=== PATIENT | female | born 1990 | race Caucasian/White ===

== ENCOUNTER 2025-01-22 12:58 | Outpatient (REF) | payer OTHER, SELFPAY ==
--- NOTE | 2025-01-22 13:03 | EMG_ITS ---
Chief complaint: Bilateral wrists and base of thumb pain, denies numbness Reason for referral: Evaluate for Carpal Tunnel Syndrome Referred by: Diego PINO Procedure done: Bilateral upper extremities NCS/EMG Precautions and/or limitations: None The limb temperature was monitored continuously and remained between 32-36 degrees C during the performance of the NCS. Nerve Conduction Studies Anti Sensory Summary Table ?Stim Site NR Onset (ms) Norm Onset (ms) Peak (ms) Norm Peak (ms) O-P Amp (?V) Norm O-P Amp Site1 Site2 Delta-0 (ms) Dist (cm) Alfred (m/s) Norm Alfred (m/s) Left Median Anti Sensory (2nd Digit) Wrist ? 2.2 2.9 <3.6 37.3 >10 Wrist 2nd Digit 2.2 14.0 64 Right Median Anti Sensory (2nd Digit) Wrist ? 2.2 2.9 <3.6 28.5 >10 Wrist 2nd Digit 2.2 14.0 64 Left Ulnar Anti Sensory (5th Digit) Wrist ? 2.3 2.9 <3.7 22.9 >15.0 Wrist 5th Digit 2.3 14.0 61 Right Ulnar Anti Sensory (5th Digit) Wrist ? 2.1 2.8 <3.7 16.1 >15.0 Wrist 5th Digit 2.1 14.0 67 Motor Summary Table ?Stim Site NR Onset (ms) Norm Onset (ms) O-P Amp (mV) Norm O-P Amp iAmp (mV) Amp (1st) (%) Site1 Site2 Delta-0 (ms) Dist (cm) Alfred (m/s) Norm Alfred (m/s) Left Median Motor (Abd Poll Brev) Wrist ? 2.7 <3.9 12.1 >4.5 14.3 100.0 Elbow Wrist 3.4 19.0 56 >45 Elbow ? 6.1 9.8 11.5 81.0 Right Median Motor (Abd Poll Brev) Wrist ? 2.7 <3.9 10.0 >4.5 11.0 100.0 Elbow Wrist 3.6 19.0 53 >45 Elbow ? 6.3 9.4 10.6 94.0 Left Ulnar Motor (Abd Dig Minimi) Wrist ? 2.2 <3.0 7.6 >5 8.9 100.0 B Elbow Wrist 2.9 18.0 62 >45 B Elbow ? 5.1 6.3 7.6 82.9 A Elbow B Elbow 1.6 10.0 62 >45 A Elbow ? 6.7 7.4 9.1 97.4 Right Ulnar Motor (Abd Dig Minimi) Wrist ? 2.3 <3.0 9.1 >5 11.3 100.0 B Elbow Wrist 3.0 18.5 62 >45 B Elbow ? 5.3 9.4 11.6 103.3 A Elbow B Elbow 1.4 10.0 71 >45 A Elbow ? 6.7 9.3 11.3 102.2 Comparison Summary Table ?Stim Site NR Peak (ms) Norm Peak (ms) P-T Amp (?V) Site1 Site2 Delta-P (ms) Norm Delta (ms) Right Median/Radial Dig I Comparison (Digit 1 - 10cm) Median ? 2.3 <2.9 34.9 Median Radial 0.0 Radial ? 2.3 <2.8 24.9 EMG ?Side Muscle Nerve Root Ins Act Fibs Psw Amp Dur Poly Recrt Int Pat Comment Right 1stDorInt Ulnar C8-T1 Nml Nml Nml Nml Nml 0 Nml Complete Right FlexCarRad Median C6-7 Nml Nml Nml Nml Nml 0 Nml Complete Right Biceps Musculocut C5-6 Nml Nml Nml Nml Nml 0 Nml Complete Right Triceps Radial C6-7-8 Nml Nml Nml Nml Nml 0 Nml Complete Right Deltoid Axillary C5-6 Nml Nml Nml Nml Nml 0 Nml Complete Left 1stDorInt Ulnar C8-T1 Nml Nml Nml Nml Nml 0 Nml Complete Left FlexCarRad Median C6-7 Nml Nml Nml Nml Nml 0 Nml Complete Left Biceps Musculocut C5-6 Nml Nml Nml Nml Nml 0 Nml Complete Left Triceps Radial C6-7-8 Nml Nml Nml Nml Nml 0 Nml Complete Left Deltoid Axillary C5-6 Nml Nml Nml Nml Nml 0 Nml Complete FINDINGS: All motor and sensory nerves tested showed normal latencies, amplitudes and conduction velocities. Concentric needle EMG was performed in selected muscles of the upper extremity. Study did not reveal signs of electric abnormalities as shown in the table above. IMPRESSION: 1. This is a normal study. 2. There is no electrodiagnostic evidence for median neuropathy, ulnar neuropathy, brachial plexopathy, or cervical radiculopathy. Thank you for your kind referral. Beti Squires MD, STACY Board Certified, [place] Board [employer] and Rehabilitation (ABPMR) Board Certified, [place] Board of Electrodiagnostic Medicine (ABEM) CODIN [phone] x 2 MTDD
== END 2025-01-22 12:59 | disposition home or self-care (01) ==
LOC: HO.NEURO 12:58
PROVIDERS: PCP Nurse Practitioner Adult Health
DX: R20.0 Anesthesia of skin (principal); R20.2 Paresthesia of skin; M25.532 Pain in left wrist; M25.531 Pain in right wrist
CPT/HCPCS: 95886; 95911

== ENCOUNTER → 2025-01-22 13:03 | Outpatient (BNV) | payer OTHER, SELFPAY | PROVIDERS: PCP Nurse Practitioner Adult Health; Visit Provider Physical Medicine & Rehabilitation | DX: M25.532 Pain in left wrist (principal); M25.531 Pain in right wrist; M79.641 Pain in right hand; M79.642 Pain in left hand | CPT/HCPCS: 95886; 95911 ==

== ENCOUNTER 2025-01-23 10:06 | Outpatient (REF) | payer OTHER, SELFPAY | END 2025-01-23 10:07 | disposition home or self-care (01) | LOC: HO.HOSX 10:06 | DX: Z13.89 Encounter for screening for other disorder (principal) ==

== ENCOUNTER 2025-01-23 11:03 | Outpatient (AMB) | payer OTHER, SELFPAY ==
--- NOTE | 2025-01-23 11:03 | MHC.OFFVIS ---
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 She expresses sharp shooting pain on the medial aspect of right wrist with squeezing and twisting activities. Left wrist is starting to cause pain on medical aspect as well. Her right wrist causes her pain most days of the week. Her symptoms are the same of the left medial wrist. She expresses pain with activities such as dialing numbers on her phone with her thumbs. Patient reports that she has had ongoing bilateral wrist and hand pain for years now. She has previously utilized bracing and topical creams. Currently her pain is felt at the base of her thumb, denies numbness and tingling . 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 Her symptoms are intermittent where they flair up for about a week and then resolve for a few week. When she has this flair up she takes Ibuprofen which has not been helpful. Right worse than the left. She also has weakness during these flair ups. 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 She expresses sharp shooting pain on the medial aspect of right wrist with squeezing and twisting activities. Left wrist is starting to cause pain on medical aspect as well. Her right wrist causes her pain most days of the week. Her symptoms are the same of the left medial wrist. She expresses pain with activities such as dialing numbers on her phone with her thumbs. Patient reports that she has had ongoing bilateral wrist and hand pain for years now. She has previously utilized bracing and topical creams. Currently her pain is felt at the base of her thumb, denies numbness and tingling . 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 Her symptoms are intermittent where they flair up for about a week and then resolve for a few week. When she has this flair up she takes Ibuprofen which has not been helpful. Right worse than the left. She also has weakness during these flair ups. IMPRESSION: 1. This is a normal study. 2. There is no electrodiagnostic evidence for median neuropathy, ulnar neuropathy, brachial plexopathy, or cervical radiculopathy. 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 -[employer] Review of Systems Const All systems reviewed & are unremarkable except as noted in HPI and below Physical Exam Vital Signs: BMI result Body Mass Index 30.5 Telehealth Telehealth Telehealth Platform: Telephone Location of provider rendering services: practice address Location of patient: address on file Patient Identification confirmed using: Name, : Yes Telehealth method: voice only Patient verbally consented to treatment: Yes Patient verbally consented to billing insurance company: Yes Assessment & Plan Assessment & Plan (1) Numbness and tingling in both hands: Code(s): R20.0 - Anesthesia of skin; R20.2 - Paresthesia of skin Category: Medical (2) Bilateral wrist pain: Code(s): M25.531 - Pain in right wrist; M25.532 - Pain in left wrist Category: Medical Plan 1. Bilateral hand numbness and tingling Symptoms intermittent, daily, worse at night Negative EMG Patient is this condition Patient is educated about the typical recovery course At this time, patient is informed that due to the fact that she has a negative EMG and nerve conduction study, there is no surgical indication at this time Patient is amenable to this plan 2. Bilateral wrist pain Patient is booked for next available appointment with me to discuss bilateral wrist pain and further treatment if indicated Patient is amenable to this plan Follow-up for next available new problem appointment, sooner with any acute concerns Orders: Orders XR Hand Bilat min 3v Today M79.643 - Pain in unspecified hand Coding Level of Care Code Tele New Pt Level 3 (33391) Diagnoses Numbness and tingling in both hands R20.0; R20.2 Bilateral wrist pain M25.531; M25.532
[2025-01-23 11:05] VITALS: BMI 30.5
== END 2025-01-23 11:14 | disposition home or self-care (01) ==
LOC: HO.HOS 11:03
PROVIDERS: PCP Nurse Practitioner Adult Health
DX: R20.0 Anesthesia of skin (principal); R20.2 Paresthesia of skin; M25.531 Pain in right wrist; M25.532 Pain in left wrist
CPT/HCPCS: 98008

== ENCOUNTER 2025-02-19 10:41 | Outpatient (REF) | payer OTHER, SELFPAY ==
--- NOTE | ~2025-02-19 | XR_ITS ---
EXAMINATION: XR WRIST, BILATERAL 3V CLINICAL INFORMATION: M25.531 - Pain in right wrist COMPARISON: Pain in right wrist. TECHNIQUE: PA, lateral, and oblique views of the each hand and wrist. FINDINGS: LEFT WRIST: No fracture, dislocation, or suspicious bone lesion. Normal bone mineralization. Normal alignment. There is negative ulnar variance. Joint spaces are preserved. No significant arthropathy. No erosions. Soft tissues appear normal. RIGHT WRIST: No fracture, dislocation, or suspicious bone lesion. Normal bone mineralization. Normal alignment. There is negative ulnar variance. Joint spaces are preserved. No significant arthropathy. No erosions. Soft tissues appear normal. XR/XR Wrist Rafael min 3V IMPRESSION: Normal bilateral wrist radiographs. Electronically signed by: Nelson Ramos MD 02/19/2025 02:40 PM EDT
== END 2025-02-19 10:42 | disposition home or self-care (01) ==
LOC: HO.HOSX 10:41
DX: M25.532 Pain in left wrist (principal); M25.531 Pain in right wrist; M65.4 Radial styloid tenosynovitis [de Quervain]
CPT/HCPCS: 20550; 73110; 99212; J1100; J2003

== ENCOUNTER 2025-02-19 13:12 | Outpatient (AMB) | payer OTHER, SELFPAY ==
--- NOTE | 2025-02-19 13:24 | A.OFFVIS_ITS ---
Vital Signs 02/19/25 15:10 Height 5 ft 2 in Weight 167 lb BMI 30.5 Intake Visit Reasons: New prob- bilateral wrist pain Intake Note: Rizwana is a 34 year old right hand dominant female who presents today for a new problem visit for evaluation of her bilateral wrist pain. Patient reports PCP told her she may have tendonitis. She has tried topical creams and wrist brace f or pain and has found no relief. Her symptoms are intermittent. 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 Denies numbness and tingling. Her pain is on the radial aspect of the bilateral wrist. Her pain prohibits heavy lifting, flexion, and extension. Any pushing activities make her pull her hand back towards her immediately. Usage of the thumbs are too painful for her. EMG/NCS done on 01/22/25 IMPRESSION: 1. This is a normal study. 2. There is no electrodiagnostic evidence for median neuropathy, ulnar neuropathy, brachial plexopathy, or cervical radiculopathy. Allergies metronidazole [From Flagyl] Allergy (Verified 02/19/25 15:09) Hives HPI HPI New prob- bilateral wrist pain: Details: Rizwana is a 34 year old right hand dominant female who presents today for a new problem visit for evaluation of her bilateral wrist pain. Patient reports PCP told her she may have tendonitis. She has tried topical creams and wrist brace for pain and has found no relief. Her symptoms are intermittent. 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 Denies numbness and tingling. Her pain is on the radial aspect of the bilateral wrist. Her pain prohibits heavy lifting, flexion, and extension. Any pushing activities make her pull her hand back towards her immediately. Usage of the thumbs are too painful for her. Patient reports that the right is worse than the left. EMG/NCS done on 01/22/25 IMPRESSION: 1. This is a normal study. 2. There is no electrodiagnostic evidence for median neuropathy, ulnar neuropathy, brachial plexopathy, or cervical radiculopathy. 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 Neuro: Normal sensation of the tips of all digits of bilateral hands at this time Vascular: Cap refill brisk Pain: Positive Jennifer test bilaterally, worse on the right No pain with CMC grind of bilateral hands No pain with varus and valgus testing of the bilateral thumb MCP joints Tenderness to palpation of bilateral radial styloid ROM: Patient is able to make a closed fist and extend all digits of bilateral hands fully and without difficulty Skin: No lacerations or abrasions. General: No ecchymosis, erythema, or evidence of infection. Psych: Appears grossly normal Affect normal Attitude cooperative Office Procedures AMB Tendon Injection Tendon Injection Details: Right de Quervain injection [id number] Tendon Sheath Injection All charges added?: Procedure code (CPT) selection complete Assessment & Plan Assessment & Plan (1) De Quervain's tenosynovitis, bilateral: Code(s): M65.4 - Radial styloid tenosynovitis [de Quervain] Category: Medical Plan 1. De Quervain tenosynovitis, right Patient is educated about this condition Patient is educated about the treatment options available At this time, patient would like to proceed with steroid injection Injection #1: The risks and benefits of a steroid injection including but not limited to risk of damage to blood vessels, nerves, tendons, infection, skin bleaching, failure to improve symptoms, increased pain, and possible need for further injections or other intervention were discussed with the patient and the patient wishes to proceed with the steroid injection. Once consent was obtained, I sterilely prepped the area over the 1st dorsal compartment of the right thumb. I then injected the 1st dorsal compartment with a combination of 1 mL of dexamethasone (4mg/ml), and 1% lidocaine. The patient tolerated the procedure well with no complications and good resolution of their symptoms prior to leaving clinic. If the patient continues to have pain 6-8 weeks following this injection, they may call to schedule appointment to discuss alternative treatment options Patient will follow-up in 3-4 weeks for left de Quervain injection, sooner with any acute concerns Orders: Orders XR Wrist Rafael min 3V Today M25.531 - Pain in right wrist, M25.532 - Pain in left wrist Coding Level of Care Code Est Pt Level 3 (73896) Diagnoses De Quervain's tenosynovitis, bilateral M65.4 CPT Codes Tendon Injection - Tendon Injection 1: [id number] Tendon Sheath Injection ([id number])
[2025-02-19 15:10] VITALS: BMI 30.5
== END 2025-02-19 14:08 | disposition home or self-care (01) ==
LOC: HO.HOS 13:13
PROVIDERS: PCP Nurse Practitioner Adult Health
DX: M65.4 Radial styloid tenosynovitis [de Quervain] (principal)
CPT/HCPCS: 20550; 99213

== ENCOUNTER → 2025-02-19 13:16 | Outpatient (BNV) | payer OTHER, SELFPAY | PROVIDERS: Visit Provider Radiology Diagnostic Radiology | DX: M25.531 Pain in right wrist (principal) | CPT/HCPCS: 73110 ==

== ENCOUNTER 2025-03-12 13:48 | Outpatient (AMB) | payer OTHER, SELFPAY ==
[2025-03-12 13:50] VITALS: BMI 30.5
--- NOTE | 2025-03-12 13:50 | MHC.OFFVIS ---
Vital Signs 03/12/25 13:50 Height 5 ft 2 in Weight 167 lb BMI 30.5 Intake Visit Reasons: OV: B/L De Quervain's tenosynovitis Intake Note: Rizwana is a 34 year old right hand dominant female who presents today for a follow up of her bilateral De Quervain's tenosynovitis. Patient received an injection for her right De Quervain's tenosynovitis on 02/19/25 and reports did not help, but would like to discuss injection for left wrist. Patient reports she Would like to discuss surgery for her right hand. Allergies metronidazole (From Flagyl) Allergy (Verified 03/12/25 14:04) Hives HPI HPI OV: B/L De Quervain's tenosynovitis: Details: Rizwana is a 34 year old right hand dominant female who presents today for a follow up of her bilateral De Quervain's tenosynovitis. Patient received an injection for her right De Quervain's tenosynovitis on 02/19/25 and reports did not help, but would like to discuss injection for left wrist. Patient reports she Would like to discuss surgery for her right hand eventually, but would prefer to get injection for left wrist 1st.. 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 Neuro: Normal sensation of the tips of all digits of bilateral hands at this time Vascular: Cap refill brisk Pain: Positive Jennifer test bilaterally, worse on the left No pain with CMC grind of bilateral hands No pain with varus and valgus testing of the bilateral thumb MCP joints Tenderness to palpation of bilateral radial styloid ROM: Patient is able to make a closed fist and extend all digits of bilateral hands fully and without difficulty Skin: No lacerations or abrasions. General: No ecchymosis, erythema, or evidence of infection. Psych: Appears grossly normal Affect normal Attitude cooperative Office Procedures AMB Tendon Injection Tendon Injection [id number] Tendon Sheath Injection All charges added?: Procedure code (CPT) selection complete Assessment & Plan Assessment & Plan (1) De Quervain's tenosynovitis, bilateral: Code(s): M65.4 - Radial styloid tenosynovitis [de Quervain] Category: Medical Plan 1. De Quervain tenosynovitis, left Patient is educated about this condition Patient is educated about the treatment options available At this time, patient would like to proceed with steroid injection Injection #1: The risks and benefits of a steroid injection including but not limited to risk of damage to blood vessels, nerves, tendons, infection, skin bleaching, failure to improve symptoms, increased pain, and possible need for further injections or other intervention were discussed with the patient and the patient wishes to proceed with the steroid injection. Once consent was obtained, I sterilely prepped the area over the 1st dorsal compartment of the left thumb. I then injected the 1st dorsal compartment with a combination of 1 mL of dexamethasone (4mg/ml), and 1% lidocaine. The patient tolerated the procedure well with no complications and good resolution of their symptoms prior to leaving clinic. If the patient continues to have pain 6-8 weeks following this injection, they may call to schedule appointment to discuss alternative treatment options Coding Level of Care Code Est Pt Level 3 (67054) Diagnoses De Quervain's tenosynovitis, bilateral M65.4 CPT Codes Tendon Injection - Tendon Injection 1: [id number] Tendon Sheath Injection ([id number])
== END 2025-03-12 14:41 | disposition home or self-care (01) ==
LOC: HO.HOS 13:48
PROVIDERS: PCP Nurse Practitioner Adult Health
DX: M65.4 Radial styloid tenosynovitis [de Quervain] (principal)
CPT/HCPCS: 20550; 99213

== ENCOUNTER → 2025-03-12 13:48 | Outpatient (BNVA) | payer OTHER, SELFPAY | PROVIDERS: PCP Nurse Practitioner Adult Health | DX: M65.4 Radial styloid tenosynovitis [de Quervain] (principal) | CPT/HCPCS: 20550; 99212; J1100; J2003 ==

== ENCOUNTER 2025-05-01 13:06 | Outpatient (AMB) | payer OTHER, SELFPAY ==
[2025-05-01 13:10] VITALS: BMI 30.5
--- NOTE | 2025-05-01 13:10 | A.OFFVIS_ITS ---
Vital Signs 05/01/25 13:10 Height 5 ft 2 in Weight 167 lb BMI 30.5 Intake Visit Reasons: OV: B/L De Quervain's tenosynovitis Intake Note: Rizwana is a 34 year old right hand dominant female who presents today for a follow up of her bilateral De Quervain's tenosynovitis. Patient received an injection for her right De Quervain's tenosynovitis on 02/19/25 that did not help. She also received an injection for her left De Quervain's tenosynovitis on 03/12/25 and pt states that also did not help. Allergies metronidazole (From Flagyl) Allergy (Verified 05/01/25 13:10) Hives HPI HPI OV: B/L De Quervain's tenosynovitis: Details: Rizwana is a 34 year old right hand dominant female who presents today for a follow up of her bilateral De Quervain's tenosynovitis. Patient received an injection for her right De Quervain's tenosynovitis on 02/19/25 that did not help. She also received an injection for her left De Quervain's tenosynovitis on 03/12/25 and pt states that also did not help. Patient states that she would like to explore operative intervention for the right wrist, as she is right-hand dominant and injections have not been helpful. 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 Neuro: Normal sensation of the tips of all digits of bilateral hands at this time Vascular: Cap refill brisk Pain: Positive Jennifer test bilaterally, No pain with CMC grind of bilateral hands No pain with varus and valgus testing of the bilateral thumb MCP joints Tenderness to palpation of bilateral radial styloid ROM: Patient is able to make a closed fist and extend all digits of bilateral hands fully and without difficulty Skin: No lacerations or abrasions. General: No ecchymosis, erythema, or evidence of infection. Psych: Appears grossly normal Affect normal Attitude cooperative Assessment & Plan Assessment & Plan (1) De Quervain's tenosynovitis, bilateral: Code(s): M65.4 - Radial styloid tenosynovitis [de Quervain] Category: Medical Plan 1. Right de Quervain tenosynovitis I educated the patient about the condition. I discussed both operative and nonoperative treatment options. The patient would like to proceed with surgery. The risks and benefits of operative treatment were discussed with the patient and the patient wishes to proceed with surgery. These risks include, but are not limited to, risk of damage to blood vessels, nerves, tendons, infection, recurrence, incomplete relief of preoperative symptoms, persistent pain, possible need for further surgery, and the risks associated with regional blocks and/or anesthesia. Plan is to take the patient to the operating room at some point in the next few weeks for the following procedures: 1. Right 1st dorsal compartment release under local All of the preoperative paperwork including the consent was discussed today. All of the patient's questions were answered in the clinic today. The patient understands that they will be in contact with our air pollution control engineer to discuss scheduling their procedure. Patient denies diabetes, blood thinners, asthma, heart issues, lung issues, kidney issues, or current smoking. Coding Level of Care Code Est Pt Level 4 (91685) Diagnoses De Quervain's tenosynovitis, bilateral M65.4
== END 2025-05-01 13:41 | disposition home or self-care (01) ==
LOC: HO.HOS 13:07
PROVIDERS: PCP Nurse Practitioner Adult Health
DX: M65.4 Radial styloid tenosynovitis [de Quervain] (principal)
CPT/HCPCS: 99214

== ENCOUNTER → 2025-05-01 13:06 | Outpatient (BNVA) | payer SELFPAY | PROVIDERS: PCP Nurse Practitioner Adult Health | DX: M65.4 Radial styloid tenosynovitis [de Quervain] (principal) | CPT/HCPCS: 99212 ==

== ENCOUNTER 2025-05-22 11:31 | Outpatient (AMB) | payer OTHER, SELFPAY ==
[2025-05-22 11:37] VITALS: BMI 30.5
--- NOTE | 2025-05-22 11:37 | MHC.OFFVIS ---
Vital Signs 05/22/25 11:37 Height 5 ft 2 in Weight 167 lb BMI 30.5 Intake Visit Reasons: OV: Lt De Quervain's tenosynovitis inj last Intake Note: Rizwana is a 34 year old right hand dominant female who presents today for a follow up of her Left De Quervain's tenosynovitis. Patient was injected on 03/12/25 without relief of symptoms. Patient would like to repeat the injection today. She is scheduled for Right 1st Dorsal Compartment Release 07/06/25. Allergies metronidazole (From Flagyl) Allergy (Verified 05/22/25 11:40) Hives HPI HPI OV: Lt De Quervain's tenosynovitis inj last: Details: Rizwana is a 34 year old right hand dominant female who presents today for a follow up of her Left De Quervain's tenosynovitis. Patient was injected on 03/12/25 without relief of symptoms. Patient would like to repeat the injection today. She is scheduled for Right 1st Dorsal Compartment Release 07/06/25. 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 De Quervain tenosynovitis, left Patient is educated about this condition Patient is educated about the treatment options available At this time, patient would like to proceed with steroid injection Injection #1: The risks and benefits of a steroid injection including but not limited to risk of damage to blood vessels, nerves, tendons, infection, skin bleaching, failure to improve symptoms, increased pain, and possible need for further injections or other intervention were discussed with the patient and the patient wishes to proceed with the steroid injection. Once consent was obtained, I sterilely prepped the area over the 1st dorsal compartment of the left thumb. I then injected the 1st dorsal compartment with a combination of 1 mL of dexamethasone (4mg/ml), and 1% lidocaine. The patient tolerated the procedure well with no complications and good resolution of their symptoms prior to leaving clinic. If the patient continues to have pain 6-8 weeks following this injection, they may call to schedule appointment to discuss alternative treatment options Coding Level of Care Code Procedure Only Diagnoses De Quervain's tenosynovitis, bilateral M65.4 CPT Codes Tendon Injection - Tendon Injection 1: [id number] Tendon Sheath Injection ([id number])
--- OUTSIDE RECORDS SUMMARY | 2025-05-22 12:28 | XMS_ITS | Clinical Summary ---
Author Organization [facility] Address [address] [place] [address] Phone Care Team Providers Care Residential Monitor Name Role Phone Sanjeev Dennis MD Primary Care Provider [phone] Allergies Active Allergy Reactions Criticality Noted Date Comments Metronidazole 03/26/2025 Medications methocarbamoL (ROBAXIN) 500 mg tablet Take 1 tablet (500 mg total) by mouth 2 (two) times a day for 15 days. 30 each 04/05/2025 Active Encounters Date Type Department Care Team Description 04/05/2025 9:49 AM EDT - 04/05/2025 10:18 AM EDT Emergency [facility] Emergency [address] [place] [phone] Bruce Coffman MD Acute bilateral low back pain without sciatica (Primary Dx) Discharge Disposition: Home or Self Care 03/26/2025 8:21 PM EDT - 03/26/2025 11:27 PM EDT Emergency [facility] Emergency [address] [place] [phone] Discharge Disposition: Left Against Medical Advice from Last 3 Months Surgical History Surgery Date Site/Laterality Comments OTHER SURGICAL HISTORY 02/2015 Right PROCEDURE: REPAIR FINGER DEFORMITY; COMMENT: middle finger WISDOM TOOTH EXTRACTION 2009 PROCEDURE: HISTORICAL WISDOM TEETH EXTRACTION; COMMENT: all 4 COLPOSCOPY 09/15/15 PROCEDURE: VT COLPOSCOPY ENTIRE VAGINA W/VAGINA/CERVIX BX TUBAL LIGATION Medical History Medical History Date Comments Abnormal Pap smear of cervix DX: Abnormal Pap smear of cervix; COMMENT: colpo neg Chronic hepatitis C without mention of hepatic coma DX:Chronic hepatitis C witho ut mention of hepatic coma; COMMENT: viral load undetectable 05/2015 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 DX: Cystic fibrosis gene carrier; 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 Tinea versicolor 07/13/2020 DX:Tinea versic olor; COMMENT: Chronic recurrent Chronic UTI Family History Medical History Relation Name Comments Suicide Attempts Father Emphysema Maternal Grandfather Other: Emphysema, kidney can cer right kidney removed Mother smoked /drug addict ion Breast cancer Neg Hx Cervical cancer Neg Hx Colon cancer Neg Hx Ovarian cancer Neg Hx Pancreatic cancer Neg Hx Prostate cancer Neg Hx Uterine cancer Neg Hx Relation Name Status Comments Father Maternal Grandfather Mother Alive Sister 1 Alive full Sister 2 Alive 09/18 Social History Tobacco Use Types Packs/Day Years Used Date Smoking Tobacco: Every Day Cigarettes 1 23.7 Started: 09/17/2001 Smokeless Tobacco: Never Alcohol Use Standard Drinks/Week Comments Never 0 (1 standard drink = 0.6 oz pur e alcohol) Comments Unknown Sex and Gender Information Value Date Recorded Sex Assigned at Not on file Legal Sex Female 11:04 AM EST Gender Identity Not on file Sexual Orientation Not on file Obstetrics History Last Filed Vital Signs Vital Sign Reading Time Taken Comments Blood Pressure 129/100 04/05/2025 9:48 AM EDT Pulse 76 04/05/2025 9:48 AM EDT Temperature 37 C (98.6 F) 04/05/2025 9:48 AM EDT Respiratory Rate 16 04/05/2025 9:48 AM EDT Oxygen Saturation 100% 04/05/2025 9:48 AM EDT Inhaled Oxygen Concentration - - Weight 73.9 kg (163 lb) 04/05/2025 9:48 AM EDT Height 160 cm (5' 3 ) 04/05/2025 9:48 AM EDT Body Mass Index 28.87 04/05/2025 9:48 AM EDT Plan of Treatment Health Maintenance Due Date Last Done Comments Pneumococcal Vaccine: Pediatrics (0 to 5 Years) and At-Risk Patients (6 to 49 Years) (1 of 2 - PCV) 2008 Cervical Cancer Screening: Pap Smear 07/24/2021 07/24/2018 Depression Screening 09/17/2024 Cholesterol Screening (Lipid Panel) 03/27/2025 HIV Screening 03/27/2025 Hepatitis C Screening 03/27/2025 Social Influencers of Health Screening 03/27/2025 COVID-19 Vaccine ( season) 2025 07/18/2021, 11/03/2020, 10/06/2020 Influenza Vaccine (#1) 2025 4, 05/25/2023, 08/07/2022, Additional history exists DTaP,Tdap,and Td Vaccines (9 - Td or Tdap) 10/08/2032 10/08/2022, 02/17/2015, 08/12/2001, Additional history exists MMR Vaccines Completed 02/15/1995, 03/13/1991 Hepatitis A Vaccines Aged Out 03/29/2017 No long er eligible based on patient's age to complete this topic Hepatitis B Vaccines Completed 03/29/2017, 02/19/2002, 09/25/2001, Additional history exists HIB Vaccines Aged Out No longer eligi ble based on patient's age to complete this topic HPV Vaccines Aged Out No longer eligi ble based on patient's age to complete this topic IPV Vaccines Aged Out No longer eligi ble based on patient's age to complete this topic Meningococcal ACWY Vaccine Aged Out N o longer eligible based on patient's age to complete this topic Meningococcal B Vaccine Aged Out No l onger eligible based on patient's age to complete this topic RSV Immunization Patients Under 20 months Aged Out No longer eligible based on patient's age to complete this topic Varicella Vaccines Aged Out No longer eligible based on patient's age to complete this topic Procedures Procedure Name Priority Date/Time Associated Diagnosis Comments POC , URINE DIAGNOSTIC STAT 03/26/2025 8:51 PM EDT [facility] URINE CULTURE TUBE STAT 03/26/2025 8:48 PM EDT URINALYSIS WITH REFLEX MICROSCOPIC AND CULTURE STAT 03/26/2025 8:48 PM EDT URINALYSIS WITH REFLEX MICROSCOPIC AND CULTURE STAT 03/26/2025 8:48 PM EDT CULTURE URINE STAT 03/26/2025 8:48 PM EDT CBC WITH AUTO DIFFERENTIAL STAT 03/26/2025 8:44 PM EDT COMPREHENSIVE METABOLIC PANEL STAT 03/26/2025 8:44 PM EDT CBC AND DIFFERENTIAL STAT 03/26/2025 8:44 PM EDT PAP SMEAR Routine 07/24/2018 from Last 3 Months or Most Recently Relevant to Health Maintenance Results * POC , urine manually resulted (03/26/2025 8:51 PM EDT) Pathologist [facility] HCG, Ur POC Negative Negative POC hCG Int QC Pass? Yes Yes Urine Urine specimen obtained by clean catch procedure / Unknown 03/26/2025 8:51 PM EDT Shana Hinkle Mosley DO POINT OF CARE TEST ENTER/ EDIT ORDERABLES Final Result * (ABNORMAL) Urinalysis with reflex microscopic and culture (03/26/2025 8:48 PM EDT) [facility] Specific [place] Urine 1.041(H) 1.003 - 1.030 LAB URINALYSIS - AUTOMATED METHOD 03/26/2025 9:[address] [facility] pH, Urine 5.5 5.0 - 8.0 pH LAB URINALYSIS - AUTOMATED METHOD 03/26/2025 9:[address] [facility] Leukocytes, Urine Small(A) Negative LAB URINALYSIS - AUTOMATED METHOD 03/26/2025 9:[address] [facility] Nitrite, Urine Negative Negative LAB URINALYSIS - AUTOMATED METHOD 03/26/2025 9:[address] [facility] Protein, Urine Trace <=Trace mg/dL LAB URINALYSIS - AUTOMATED METHOD 03/26/2025 9:[address] [facility] Glucose, Urine Negative Negative mg/dL LAB URINALYSIS - AUTOMATED METHOD 03/26/2025 9:[address] [facility] Ketones, Urine 15(A) Negative mg/dL LAB URINALYSIS - AUTOMATED METHOD 03/26/2025 9:[address] [facility] Urobilinogen, Urine 1.0 0.2 - 1.0 mg/dL LAB URINALYSIS - AUTOMATED METHOD 03/26/2025 9:[address] [facility] Bilirubin, Urine Negative Negative LAB URINALYSIS - AUTOMATED METHOD 03/26/2025 9:[address] [facility] Blood, Urine Negative Negative LAB URINALYSIS - AUTOMATED METHOD 03/26/2025 9:38 PM [facility] RBC, Urine 7.6(H) 0 - 4 /HPF LAB URINALYSIS - AUTOMATED METHOD 03/26/2025 9:38 PM [facility] WBC, Urine 0.5 0 - 4 /HPF LAB URINALYSIS - AUTOMATED METHOD 03/26/2025 9:38 PM [facility] Squamous Epithelial, Urine >100(H) 0 - 60 /LPF LAB URINALYSIS - AUTOMATED METHOD 03/26/2025 9:38 PM [facility] Bacteria, Urine Negative Negative /HPF LAB URINALYSIS - AUTOMATED METHOD 03/26/2025 9:38 PM [facility] Hyaline Casts, Urine 1.6 0 - 3 /LPF LAB URINALYSIS - AUTOMATED METHOD 03/26/2025 9:[address] [facility] Urine Urine specimen obtained by clean catch procedure / Unknown Non-blood Collection / Unknown 03/26/2025 8:48 PM EDT 03/26/2025 8:58 PM EDT us Shana Mosley DO LAB URINE ORDERABLES Deena l Result [facility] [address] [place] [address], [place] [phone] * Almaraz urine culture tube (03/26/2025 8:48 PM EDT) Pathologist [facility] Extra Tube Hold for add-ons. 03/26/2025 10:[address] [facility] Comment:Auto resulted. Urine Urine specimen obtained by clean catch procedure / Unknown Non-blood Collection / Unknown 03/26/2025 8:48 PM EDT 03/26/2025 8:[address] [facility] Manan Mosley LAB URINE ORDERABLES Deena l Result Performing Organization Address City/[facility]/ZIP Co de Phone Number [facility] [address] [place] [address], [place] [phone] * Culture urine (03/26/2025 8:48 PM EDT) Pathologist [facility] Culture, Urine 10,000-49,000 CFU/mL Mixed urogenital lisa, no uropathogens present. Suggest repeat specimen if clinically indicated. 03/28/2025 11:[address] [facility] Urine Urine specimen obtained by clean catch procedure / Unknown Non-blood Collection / Unknown 03/26/2025 8:48 PM EDT 03/26/2025 9:37 PM EDT [facility] [employer] Manan Mosley LAB MICROBIOLOGY - GENERA L ORDERABLES Final Result [facility] [address] [place] [address], [place] [phone] * CBC auto differential (03/26/2025 8:44 PM EDT) WBC 10.0 4.8 - 10.8 K/[facility] LAB HEMETOLOGY METHOD 03/26/2025 9:[address] [facility] RBC 4.40 3.80 - 4.80 M/[facility] LAB HEMETOLOGY METHOD 03/26/2025 9:[address] [facility] Hemoglobin 13.1 11.5 - 16.0 g/dL LAB HEMETOLOGY METHOD 03/26/2025 9:04 PM [facility] Hematocrit 38.6 35.0 - 47.0 % LAB HEMETOLOGY METHOD 03/26/2025 9:04 PM [facility] MCV 87.9 79.0 - 98.0 FL LAB HEMETOLOGY METHOD 03/26/2025 9:04 PM [facility] MCH 29.8 27.0 - 32.0 pcg LAB HEMETOLOGY METHOD 03/26/2025 9:04 PM [facility] MCHC 33.9 32.0 - 37.0 g/dL LAB HEMETOLOGY METHOD 03/26/2025 9:04 PM [facility] RDW 12.1 11.0 - 15.0 % LAB HEMETOLOGY METHOD 03/26/2025 9:04 PM [facility] Platelets 313 130 - 400 K/mcL LAB HEMETOLOGY METHOD 03/26/2025 9:04 PM [facility] MPV 9.5 7.0 - 11.0 FL LAB HEMETOLOGY METHOD 03/26/2025 9:04 PM [facility] NRBC 0.0 <1.0 % LAB HEMETOLOGY METHOD 03/26/2025 9:04 PM [facility] NRBC Absolute 0.00 <0.10 K/mcL LAB HEMETOLOGY METHOD 03/26/2025 9:04 PM [facility] Neutrophils Relative 55.1 % LAB HEMETOLOGY METHOD 03/26/2025 9:04 PM [facility] Lymphocytes Relative 36.5 % LAB HEMETOLOGY METHOD 03/26/2025 9:[address] [facility] Monocytes Relative 7.7 % LAB HEMETOLOGY METHOD 03/26/2025 9:04 PM [facility] Eosinophils Relative 0.1 % LAB HEMETOLOGY METHOD 03/26/2025 9:04 PM [facility] Basophils Relative 0.4 % LAB HEMETOLOGY METHOD 03/26/2025 9:[address] [facility] Immature Granulocytes Relative 0.2 % LAB HEMETOLOGY METHOD 03/26/2025 9:04 PM [facility] Neutrophils Absolute 5.49 1.50 - 7.00 K/mcL LAB HEMETOLOGY METHOD 03/26/2025 9:04 PM [facility] Lymphocytes Absolute 3.64 1.00 - 5.00 K/mcL LAB HEMETOLOGY METHOD 03/26/2025 9:04 PM [facility] Monocytes Absolute 0.77 0.20 - 1.00 K/mcL LAB HEMETOLOGY METHOD 03/26/2025 9:04 PM [facility] Eosinophils Absolute 0.01 0.00 - 0.50 K/mcL LAB HEMETOLOGY METHOD 03/26/2025 9:04 PM [facility] Basophils Absolute 0.04 0.00 - 0.20 K/mcL LAB HEMETOLOGY METHOD 03/26/2025 9:04 PM [facility] Immature Granulocytes Absolute 0.02 0.00 - 0.03 K/mcL LAB HEMETOLOGY METHOD 03/26/2025 9:04 PM [facility] Blood Venous blood specimen / Unknown Venipuncture / Unknown 03/26/2025 8:44 PM EDT 03/26/2025 8:55 PM EDT us Shana Mosley DO LAB BLOOD ORDERABLES Deena l Result [facility] [address] [place] [address], * (ABNORMAL) Comprehensive metabolic panel (03/26/2025 8:44 PM EDT) Sodium 138 133 - 145 mmol/L LAB CHEMISTRY METHOD 03/26/2025 9:[address] [facility] Potassium 3.7 3.5 - 5.5 mmol/L LAB CHEMISTRY METHOD 03/26/2025 9:[address] [facility] Chloride 111(H) 96 - 110 mmol/L LAB CHEMISTRY METHOD 03/26/2025 9:32 PM [facility] CO2 23 21 - 32 mmol/L LAB CHEMISTRY METHOD 03/26/2025 9:32 PM [facility] Anion Gap 4 3 - 11 LAB CHEMISTRY METHOD 03/26/2025 9:32 PM [facility] Glucose 100 70 - 100 mg/dL LAB CHEMISTRY METHOD 03/26/2025 9:32 PM [facility] BUN 21 5 - 25 mg/dL LAB CHEMISTRY METHOD 03/26/2025 9:32 PM [facility] Creatinine 0.80 0.50 - 1.10 mg/dL LAB CHEMISTRY METHOD 03/26/2025 9:32 [facility] eGFR 99 >=60 mL/min/1. 73m2 LAB CHEMISTRY METHOD 03/26/2025 9:32 PM [facility] Comment:Calculation based on the Chronic Kidney Disease Epidemiology Collaboration (CKD-EPI) equation refit without adjustment for race. BUN/Creatinine Ratio 26.3 LAB CHEMISTRY METHOD 03/26/2025 9:32 PM [facility] Calcium 9.2 8.5 - 10.5 mg/dL LAB CHEMISTRY METHOD 03/26/2025 9:32 PM [facility] AST (SGOT) 12 10 - 42 unit/L LAB CHEMISTRY METHOD 03/26/2025 9:[address] [facility] ALT (SGPT) 26 10 - 60 unit/L LAB CHEMISTRY METHOD 03/26/2025 9:[address] [facility] Alkaline Phosphatase 47 42 - 121 unit/L LAB CHEMISTRY METHOD 03/26/2025 9:[address] [facility] Total Protein 6.8 6.0 - 8.0 g/dL LAB CHEMISTRY METHOD 03/26/2025 9:[address] [facility] Albumin 4.0 3.2 - 5.0 g/dL LAB CHEMISTRY METHOD 03/26/2025 9:[address] [facility] Total Bilirubin 0.2 0.0 - 1.4 mg/dL LAB CHEMISTRY METHOD 03/26/2025 9:[address] [facility] Blood Venous blood specimen / Unknown Venipuncture / Unknown 03/26/2025 8:44 PM EDT 03/26/2025 8:55 PM EDT us Shana Mosley DO LAB BLOOD ORDERABLES Deena l Result [facility] [address] [place] [address], [place] [phone] * Pap smear (07/24/2018) 07/24/2018 Narrative HISTORICAL TESTING LAB RESULTING AGENCY - 07/29/2018 8:24 AM EST [id number] THINPREP PAP, IMAGED: NEGATIVE FOR SQUAMOUS INTRAEPITHELIAL LESION AND MALIGNANCY . CLUE CELLS ARE PRESENT. MIGUEL KAUFMAN(ASCP) (CASE ELECTRONICALLY SIGNED 07 28 2018) ADEQUACY: SATISFACTORY ENDOCERVICAL/TRANSFORMATION ZONE COMPONENT PRESENT. SOURCE: THINPREP PAP HPV IF ASCUS, CERVICAL, IMAGED: CLINICAL INFORMATION: HPV IF DIAGNOSIS OF ASCUS. HORMONES, PAP HX 07/06/17 ASCUS, HPV POS, NO LMP PT HAS HAD INJECTION [Z12.4, Z01.419] us Hitesh Villagran CNM LAB CYTOLOGY ORDERABLES Final Result HISTORICAL TESTING LAB RESULTING AGENCY from Last 3 Months or Most Recently Relevant to Health Maintenance Insurance [employer] Care Teams Residential Monitor Relationship Specialty Start Date End Date Sanjeev Dennis MD [address] [place] [id number] PCP - General Internal Medicine 05/19/25
== END 2025-05-22 11:54 | disposition home or self-care (01) ==
LOC: HO.HOS 11:32
PROVIDERS: PCP Nurse Practitioner Adult Health
DX: M25.532 Pain in left wrist (principal); M65.4 Radial styloid tenosynovitis [de Quervain]
CPT/HCPCS: 20550

== ENCOUNTER → 2025-05-22 11:31 | Outpatient (BNVA) | payer OTHER, SELFPAY | PROVIDERS: PCP Nurse Practitioner Adult Health | DX: M65.4 Radial styloid tenosynovitis [de Quervain] (principal) | CPT/HCPCS: 20550; J1100; J2003 ==